=== PATIENT | male | born 1950 | race Caucasian/White ===

== ENCOUNTER 2016-11-18 05:37 | Day surgery (SDC) | payer MEDICARE, OTHER ==
[~2016-11-18] VITALS: Ht 185.4 cm; Wt 56.2 kg
[~2016-11-18 05:37] MED LIST: ACETAMINOPHEN-1 EAC1 PO; AMLODIPINE BESYL5 MG PO; ASPIR-LOW81 MG PO; CIPROFLOXACIN500 MG PO; ESSENTIAL DAIL1 EACH PO; FLOMAX0.4 MG PO; LISINOPRIL-HCT1 EACH PO; METOPROLOL TART25 MG PO; METRONIDAZOLE250 MG PO; NAPROXEN375 MG PO; NASAL DECONGEST30 M2 PO; PLAQUENIL200 MG PO; PREDNISONE5 MG PO; PRILOSEC20 MG PO; TAMSULOSIN HCL0.4 MG PO; TUMS DUAL ACTI1 EACH PO; TYLENOL WITH C1 EACH PO
--- NOTE | 2016-11-18 07:32 | NUR ---
11/18/16 0732 Teena Luna 0797-PATIENT ARRIVED TO PACU ON 10L MASK O2 SAT 100% PATIENT NONAROUSABLE ORAL AIRWAY IN PLACE. RN HOLDING TO MAINTAIN OPEN AIRWAY. BANDAID TO LEFT HIP CDI.
--- NOTE | 2016-11-18 09:26 | NUR ---
PT UP TO BR W/RN STANDBY. PT AMBULATES AT BASELINE AND REPORTS SUCCESSFUL VOID. PT BACK IN BED W/CALL LIGHT W/IN REACH. MORE COFFEE GIVEN.
--- NOTE | 2016-11-19 12:53 | OR ---
[facility] [address] [facility] [place], [place] [address] Signed DATE OF PROCEDURE: 11/18/16 PREOPERATIVE DIAGNOSIS: Inflammatory arthritis, left hip. POSTOPERATIVE DIAGNOSIS: Inflammatory arthritis, left hip. PROCEDURE: Injection, left hip under fluoroscopy. SURGEON: Humberto Mclean M.D. ANESTHESIA: General inhalation. There were no specimens or complications. Tourniquet was not used. There was no blood loss. PROCEDURE DETAIL The patient was taken to the operating room. After the patient was sedated and the airway supported, the left groin area was prepped and draped in a routine sterile fashion. Under fluoroscopic control, an 18-gauge spinal needle was introduced anterolaterally and directed into the hip joint. Once, we pierced the capsule, we placed a syringe with 8 mL of 1% plain Xylocaine and 2 mL of Depo-Medrol on the end of the needle. We then injected the hip and there was essentially no resistance to injection. After injection, the needle was withdrawn and a sterile dressing applied. He was then awakened in the recovery room where he arrived in stable condition. Counts were correct and antibiotic protocols were followed. MD ROXANNA Garcia/Modl /[id number] cc: Anmol Neely MD Electronically Signed By: HUMBERTO MCLEAN MD 11/19/16 1253 PATIENT NAME: MARCOS DAVIS OPERATIVE REPORT DATE OF : 54 PHYSICIAN: HUMBERTO MCLEAN MD REPORT #: [id number] REPORT IS CONFIDENTIAL AND NOT TO BE RELEASED WITHOUT AUTHORIZATION
== END 2016-11-18 09:40 | disposition home or self-care (01) ==
LOC: DS 05:37
PROVIDERS: Orthopaedic Surgery
PROC: 3E0U3GC Introduction of Other Therapeutic Substance into Joints, Percutaneous Approach (ICD-10-PCS; principal; 2016-11-18 06:45)
DX: M06.852 Other specified rheumatoid arthritis, left hip (principal); Z88.0 Allergy status to penicillin; Z88.8 Allergy status to other drugs, medicaments and biological substances; Z79.899 Other long term (current) drug therapy
CPT/HCPCS: 73501; 99156; 99157; J1100; J1885; J2250; J2405; J2704; J2765; J3010; J3301; J7120

== ENCOUNTER 2017-03-09 12:56 | Day surgery (SDC) | payer MEDICARE, OTHER ==
[~2017-03-09] VITALS: Ht 185.4 cm; Wt 57.1 kg
[~2017-03-09 12:56] MED LIST changes: +OMEPRAZOLE40 MG PO; -PRILOSEC20 MG PO
--- NOTE | 2017-03-09 14:54 | NUR ---
03/09/17 1454 Edith Bishop 1445 - PT ARRIVED TO PACU. MAINTAINING OWN AIRWAY. RESPONDING TO STIMULI
--- NOTE | 2017-03-11 10:03 | OR ---
[facility] [address] [place], [place] [address] Signed DATE OF OPERATION: 03/09/2017 SURGEON: Sherrie Colunga MD PREOPERATIVE DIAGNOSES: 1. History of perforated duodenal ulcer, status post laparoscopic Kosta patch repair. 2. Chronic immunosuppression and steroid use for rheumatoid arthritis. POSTOPERATIVE DIAGNOSES: 1. No evidence of ongoing ulcer of duodenum or elsewhere. 2. Mild antral gastritis. PROCEDURE: Esophagogastroduodenoscopy with biopsy. SURGEON: Sherrie Colunga MD. ANESTHESIA: Intravenous sedation, fentanyl 100 mcg, Versed 5 mg. INDICATION: This 66-year-old thin white man is a patient of Dr. Neely, has been long afflicted by rheumatoid disease for which he has taken steroids as well as other immunosuppressants. He has undergone laparoscopic Kosta patch repair of a perforated duodenal ulcer by me over a year ago and remains on PPI medication at this time. He has no particular symptoms of ulceration now, although he does have vague abdominal pain from [id number]. He was admitted to undergo upper endoscopy to affirm that there has been complete healing of the duodenal ulcer, but there were no other ulcerations. He understands the risks of bleeding, infection, and perforation related upper endoscopy and wished to proceed. FINDINGS: Esophagus and stomach and duodenum were essentially normal. There was a silk suture as a remnant in the area of the duodenal ulcer perforation, but no sign of ulceration at all. CLOtest was negative 20 minutes postprocedure. His flap valve was normal as was the esophagus. There was mild antral gastritis, but of little consequence in almost certainly related to his ongoing medication use. PROCEDURE: Electronically Signed By: SHERRIE COLUNGA MD 03/11/17 1003 PATIENT NAME: MARCOS DAVIS OPERATIVE REPORT DATE OF : 54 PHYSICIAN: SHERRIE COLUNGA MD REPORT #: [id number] REPORT IS CONFIDENTIAL AND NOT TO BE RELEASED WITHOUT AUTHORIZATION [facility] [address] [place], [place] [address] Signed The patient was brought to the endoscopy suite given topical Hurricaine spray hypopharyngeal anesthesia and placed in lateral decubitus position. He was given intravenous sedation to the point of slurred speech and nystagmus. A bite block was placed. An Olympus video upper endoscope was passed in the hypopharynx. The vocal cords appeared normal. Scope was advanced to the esophagus. Throughout its length, it was normal as was the stomach. Retroflexed view confirmed a normal flap valve. The pylorus was normal. Scope was passed through into the duodenum. Immediately noted was a remnant of a silk suture that had been used for a Kosta patch repair of the duodenal perforation. Photographs were taken. Biopsies were taken of the duodenum were downstream to assess for celiac disease. The scope was withdrawn to evaluate the stomach more fully. There was mild antral gastritis, but not much and certainly no ulceration. Biopsies were obtained for both LEA and pathologic testing. Retroflexed view again affirmed a normal flap valve. The scope was withdrawn to the distal esophagus, which was normal. The remaining esophagus was normal. The patient was taken to the recovery room in good condition. CONCLUDING DIAGNOSIS: No sign of ulcer, healed duodenal ulcer perforation. PLAN: He needs to remain on PPI medication long-term due to his ulcer risk given his ongoing medication use. He will return to the ongoing care of Dr. Neely. I am happy to see him again as needed, but there will be no scheduled followup otherwise. He acknowledges that there are risks to PPI use long-term. Other alternatives that would be a consideration, but given his significant ongoing steroid use and other features of his underlying rheumatic disease, I would except the risk of osteoporosis and other problems in lieu of a duodenal ulcer or gastric ulcer. He will consider this further. MD ZHANG Douglas/MODL /[id number] Electronically Signed By: SHERRIE COLUNGA MD 03/11/17 1003 PATIENT NAME: MARCOS DAVIS OPERATIVE REPORT DATE OF : 54 PHYSICIAN: SHERRIE COLUNGA MD REPORT #: [id number] REPORT IS CONFIDENTIAL AND NOT TO BE RELEASED WITHOUT AUTHORIZATION [facility] [address] [place], [place] [address] Signed cc: Anmol Neely MD Electronically Signed By: SHERRIE COLUNGA MD 03/11/17 1003 PATIENT NAME: SUSANMARCOS GOMEZ OPERATIVE REPORT DATE OF : 54 PHYSICIAN: SHERRIE COLUNGA MD REPORT #: [id number] REPORT IS CONFIDENTIAL AND NOT TO BE RELEASED WITHOUT AUTHORIZATION
== END 2017-03-09 15:45 | disposition home or self-care (01) ==
LOC: OPS 12:56 → DS 12:56 → OPS 14:00 → DS 14:00 → OPS 15:45
PROVIDERS: Surgery
PROC: 0DB68ZX Excision of Stomach, Via Natural or Artificial Opening Endoscopic, Diagnostic (ICD-10-PCS; 2017-03-09)
PROC: 0DB98ZX Excision of Duodenum, Via Natural or Artificial Opening Endoscopic, Diagnostic (ICD-10-PCS; principal; 2017-03-09 14:00)
DX: K31.9 Disease of stomach and duodenum, unspecified (principal); M06.9 Rheumatoid arthritis, unspecified; Z79.899 Other long term (current) drug therapy
CPT/HCPCS: 88305; 99153; G0500; J0690; J1720; J2250; J3010; J7120

== ENCOUNTER 2017-05-28 11:18 | Inpatient (IN) | payer MEDICARE, OTHER ==
[~2017-05-28] VITALS: Ht 185.4 cm; Wt 57.1 kg
[2017-06-02] MEDS ORDERED: NORCO 5-325 TA1 EACH PO (09:54)
--- NOTE | 2017-06-02 10:05 | NUR ---
PATIENT HERE TODAY FOR PREADMISSION APPOINTMENT. HE IS SCHEDULED FOR A LEFT TOTAL HIP REPLACMENT ON 06/09/17. HE HAS AN APPOINTMENT SET UP FOR PHYISCAL THERAPY AT THE [facility] FOR LATER THIS WEEK. HE HAS HAS A RIGHT TOTAL HIP REPLACMENT IN THE PAST AND STILL HAS THE WALKER AND EQUIPMENT FROM IT. HE HAS TWO STEPS INTO HIS HOME WITH NO STEPS INSIDE THE HOME. HIS VIKTORIA AND DAUGHTER WHO IS ALSO A NURSE WILL BE HERE WITH HIM AND TRANSPORT HIM HOME AND TO APPOINTMENTS. THIS INFORMATION WILL BE SENT TO DR SLATER AND MICHAEL PLANNING FOR FURTHER FOLLOW UP.
--- NOTE | 2017-06-09 09:28 | NUR ---
06/09/17 0928 Teena Luna 0918-PATIENT ARRIVED TO PACU ON 6L MASK O2 SAT 100% PATIENT NONAROUSABLE. DRESSING TO LEFT HIP CDI. SR. ICE APPLIED TO LEFT HIP.
--- NOTE | 2017-06-09 10:31 | NUR ---
TO ROOM 109 VIA BED WITH MAINTENANCE SHOP TECHNICIAN. REPORT RECIEVED FROM [employer] ASSISTANT NURSE. PATIENT ALERT AND ORIENTED, INTERACTIVE. ABLE TO FEEL COOLNESS AND PAIN ALL THE WAY DOWN TO FEET, DIFFICULTY MOVING TOES CURRENTLY. CIRCULATION INTACT IN FEET.
--- NOTE | 2017-06-09 11:08 | NUR ---
PATIENT SITTING UP IN BED. PATIENTS FAMILY IN ROOM. CALL LIGHT WITHIN REACH. NO OTHER NEEDS AT THIS TIME.
--- NOTE | 2017-06-09 11:23 | NUR ---
CONTINUES TO REST IN BED, NO COMPLAINTS, TALKING WITH FAMILY. NO PAIN OR NAUSEA.
--- NOTE | 2017-06-09 12:17 | NUR ---
RESTING IN BED, SLEEPING ON AND OFF. SPO2 MONITOR SHOWS LOW 80% WHEN ASLEEP. CONNECTED NC OXYGEN AT 2L.
--- NOTE | 2017-06-09 13:40 | NUR ---
PATIENT SITTING UP IN BED VISITING WITH FAMILY IN ROOM. FRESH ICE WATER. CALL LIGHT WITHIN REACH. RN IN ROOM. NO OTHER NEEDS AT THIS TIME.
--- NOTE | 2017-06-09 15:07 | NUR ---
HELPED PATIENT UP TO SIDE OF BED, STANDING AND WALKED WITH WALKER TO WINDOW AND BACK. STANDING BESIDE BED TRYING TO USE URINAL. NO URINE OUTPUT. BLADDER SCAN 562ML. WILL TRY TO USE URINAL AGAIN WITHIN 1 HOUR.
[2017-06-09] MEDS ORDERED: ICY HOT1 EAC1 TOP (15:49)
--- NOTE | 2017-06-09 15:49 | NUR ---
MED REC COMPLETE WITH [facility] REFILL HISTORY AND PATIENT INTERVIEW. PATIENT TAKES HYDROXYCHLOROQUINE 1 TABLET TWICE DAILY ON M,,,THU AND ONCE DAILY ,,AND THU.
--- NOTE | 2017-06-09 16:02 | NUR ---
up from bed to try and use urinal again. no sucess. walked to window and back. passing some gas, so walked into bathroom to sit down and try to have a BM.
--- NOTE | 2017-06-09 16:55 | NUR ---
DR SLATER NOTIFIED THAT PATIENT HAS NOT BEEN ABLE TO URINATE DESPITE BEING UP 2 TIMES AND RECEIVEING IV FLUIDS AND PO FLUIDS. BLADDER SCAN SHOWS 562 IN BLADDER. NEW ORDERS RECEIVED TO PLACE TORO CATHETER AND DC IT IN THE AM 06-10-17
--- NOTE | 2017-06-09 17:35 | NUR ---
HAS BEEN UP WITH PHYSICAL THERAPY, MINIMAL PAIN. DESATS WHEN ASLEEP. ON ROOM AIR WHILE AWAKE. SCD'S, IV FLUIDS, DUE TO VOID, MAY PLACE OTRO IF NO VOID, DC TORO IN AM. CAN ADVANCE DIET TOLERATED. NO NAUSEA WITH LIQUID DIET.
--- NOTE | 2017-06-09 17:55 | NUR ---
PATIENT SITTING UP IN BED. PATIENT STATES PAIN LEVEL IS A 2.5 OUT OF 10. PATIENT STATES THAT HE HAS NOT VOIDED SINCE ARRIVING TO MED/SURG. RN NOTIFIED. RN IN ROOM. CALL LIGHT WITHIN REACH. NO OTHER NEEDS AT THIS TIME.
--- NOTE | 2017-06-09 18:17 | NUR ---
DR ASCENCIO HERE TO TALK WITH PATIENT.
--- NOTE | 2017-06-09 20:00 | NUR ---
RECEIVED REPORT FROM DAY SHIFT RN. PATIENT IS RESTING IN BED WATCHING TV. PATIENT DENIES ANY NEEDS AT THIS TIME. CALL LIGHT IN REACH.
--- NOTE | 2017-06-09 20:20 | NUR ---
PATIENT ASSESSMENT COMPLETED. PATIENT MEDICATION GIVEN PER ORDER. PATIENT GIVEN PRN PAIN MEDICATIONS PER ORDER FOR 3/[address] IN [address] HIP. DRESSING IN PLACE ON LEFT HIP, MEPILEX AND OPSITE IN PLACE, DRESSING C/D/I. PATIENT RESTING IN BED WATCHING TV. WEDGE, SCDS, AND HEEL PROTECTORS IN PLACE. PATIENT GIVEN ICE WATER REFILL. TORO INPLACE AND DRAINING CLEAR YELLOW URINE. NO FURTHER NEEDS NOTED. CALL LIGHT IN REACH.
--- NOTE | 2017-06-09 21:25 | NUR ---
PATIENT SCHEDULED MEDICATIONS GIVEN PER ORDER. PATIENT DENIES PAIN AT THIS TIME. NO FURTHER NEEDS AT THIS TIME. CALL LIGHT WITHIN REACH. ICE PACK PLACED ON PATIENTS LEFT HIP.
--- NOTE | 2017-06-09 23:04 | NUR ---
PATIENT GIVEN PRN PAIN MEDICATION PER ORDER. PATIENT RATES PAIN AT A 4/10 IN HIS LEFT. HIP. WARM BLANKET PROVIDED. NO FURTHER NEEDS. CALL LIGHT IN REACH.
--- NOTE | 2017-06-10 01:21 | NUR ---
PATIENT IS RESTING IN BED. PULSE OX READINGS ARE WNL. CALL LIGHT IN REACH.
--- NOTE | 2017-06-10 02:40 | NUR ---
PATIENTS VITALS TAKEN AND RECORDED. PATIENTS 0200 MEDICATIONS GIVEN PER ORDER. PATIENT DENIES THE NEED FOR PAIN MEDICATION AT THIS TIME. CALL LIGHT IN REACH.
--- NOTE | 2017-06-10 04:10 | NUR ---
PATIENT IS RESTING IN BED WITH EYES CLOSED. PULSE OX READINGS ARE WNL. CALL LIGHT IN REACH.
--- NOTE | 2017-06-10 04:45 | NUR ---
PATIENT RESTED WELL THROUGHOUT THE SHIFT. PATIENT RECEIVED PRN PAIN MEDICATION X2. JONAH IS ON A REG DIET AND TOLERATING WELL, NO COMPLAINTS OF NAUSEA. PATIENT IS ON RA. PATIENT HAS HEEL PROTECTORS, AND SCDS IN PLACE. [facility] HAS ICE PACK TO LEFT HIP PRN. PATIENT HAS WEDGE IN PLACE WHILE IN BED. PATIENT HAS NOT BEEN UP TO AMBULATE DURING THIS SHIFT, HOWEVER WAS A 1PA W/FWW YESTERDAY. PATIENT IS AAOX3 AND [facility] PATIENT HAS MEPILEX AND OPSITE TO LEFT HIPT, AND IS C/D/I.
--- NOTE | 2017-06-10 06:20 | NUR ---
PATIENTS TORO DC'D, W/NO ISSUSE. PATIENT GIVEN MORNING MEDICATIONS PER ORDER. PATIENT GIVEN PRN PAIN MEDICATION PER ORDER. PATIENT RATES PAIN AT A 3/10 IN HIS LEFT HIP. PATIENTS PULSE OX DC'D. PATIENT ASSISTED TO THE RECLINER. PATIENT TOLERATED ACTIVITY WELL. PATIENT IS A SBA W/FWW. PATIENT DENIES ANY FURTHER NEEDS. PATIENT IS COMPLETING IS AT THIS TIME. CALL LIGHT IN REACH.
--- NOTE | 2017-06-10 07:28 | NUR ---
RECEIVED REPORT FROM MEAGHAN WAGGONER. PT IS AWAKE AND UP IN CHAIR. ICE PACK IN PLACE. PT DENIES PAIN AND OTHER NEEDS AT THIS TIME.
--- NOTE | 2017-06-10 08:32 | NUR ---
PT SITTING UP IN CHAIR EATING BREAKFAST. STATES PAIN 3/10 TOLERABLE. HAS VOIDED X2 SINCE TORO REMOVAL. USED URINAL. URINE IS PALE YELLOW. FAMILY IN ROOM WITH PT. DENIES OTHER NEEDS AT THIS TIME.
--- NOTE | 2017-06-10 09:51 | NUR ---
PT SITTING UP IN CHAIR. IN ROOM WITH PT. STATES PAIN IS 2/10 AND IS TOLERABLE. DENIES OTHER NEEDS AT THIS TIME.
--- NOTE | 2017-06-10 10:20 | NUR ---
PT STATES PAIN 2.5/10. GIVEN 1 TAB OF OXY PRIOR TO PHYSICAL THERAPY. PT HAS NUMEROUS FAMILY MEMBERS IN ROOM. PT IS ALERT AND VERY PLEASANT. DENIES OTHER NEEDS AT THIS TIME.
--- NOTE | 2017-06-10 11:07 | NUR ---
DEMARCO VALERO ASSISTED PT BACK TO CHAIR FROM BATHROOM. PT WALKS WELL WITH FWW. RATED PAIN 2/10 WHILE WALKING. REPLACED ICE PACK. REFILLED WATER AND COFFEE. PT DENIES OTHER NEEDS AT THIS TIME. FAMILY IN ROOM VISITING WITH PT.
--- NOTE | 2017-06-10 11:08 | NUR ---
THIS LABORER PLUMBING ASSISTED PATIENT TO THE RESTROOM. 1 PERSON SBA WITH FWW. FRESH GOWN ON PATIENT. PATIENT IS NOW SITTING UP IN CHAIR. FRESH ICE WATER. NEW ICE PACK. THIS LABORER PLUMBING ANSWERED CALL LIGHT FROM BATHROOM. WHEN THIS LABORER PLUMBING WALKED INTO THE ROOM AND THE PATIENT WAS ALREADY OUT OF THE BATHROOM AND HEADING TO HIS CHAIR. THIS LABORER PLUMBING REMINDED PATIENT TO CALL BEFORE STANDING. RN NOTIFIED. CALL LIGHT WITHIN REACH. NO OTHER NEEDS AT THIS TIME.
--- NOTE | 2017-06-10 11:32 | NUR ---
PT WALKED WITH PHYS. THER. ERICA STATES HE DID WELL AND IS CLEARED BY HER TO GO HOME IF DR SLATER WISHES. PT TOLERATED ACTIVITY WELL.
--- NOTE | 2017-06-10 13:54 | NUR ---
PT SITTING UP IN CHAIR. GIVEN 2 TABS OXY FOR PAIN 06/09. PT HAS DC ORDERS. WAITING FOR TO RETURN. WILL WORK WITH ERICA ONE MORE TIME BEFORE GOING HOME.
--- NOTE | 2017-06-10 14:23 | NUR ---
DC TEACHING PROVIDED ON WOUND CARE, S/S OF INFECTION, AND FOLLOW-UP PT VERBALIZED UNDERSTANDING. ALL QUESTIONS ANSWERED. IV REMOVED WNEvelyn. ERICA IN ROOM TO DISCUSS PHYSCIAL THERAPY PLAN. WALKING WITH PT.
[2017-06-10] MEDS ORDERED: XARELTO10 MG PO (14:43)
[2017-06-10] MEDS ORDERED: OXYCODONE HCL10 MG PO (14:43)
--- NOTE | 2017-06-10 15:30 | NUR ---
PT DC'D TO HOME WITH . EDUCATION PROVIDED. ONEIL IN TO SEE PT. VERBALIZED UNDERSTANDING. OUT IN WHEELCHAIR WITH DEMARCO VALERO.
--- NOTE | 2017-06-11 07:14 | OR ---
[facility] [address] [place], [place] [address] Signed DATE OF OPERATION: 06/09/2017 SURGEON: Jn Slater MD PREOPERATIVE DIAGNOSIS: End-stage rheumatoid arthritis, left hip. POSTOPERATIVE DIAGNOSIS: End-stage rheumatoid arthritis, left hip. PROCEDURE: Left total hip arthroplasty. IMPLANTS: Size 56 mm Sector Hollis cup with a neutral 36 liner. On the femoral side, we used a size 7 Gage stem. With a +1.5 36 head, the stem with standard offset. ANESTHESIA: Spinal with sedation. SPECIMENS AND COMPLICATIONS: There were no specimens or complications. BLOOD LOSS: About 100 mL. WHAT WAS DONE: The patient was taken to the operating room. After anesthesia was induced and the patient sedated, he was placed in the right lateral decubitus position and prepped and draped in a routine sterile fashion. A slightly curvilinear incision was made centered over the apex of the greater trochanter. Skin was divided sharply. Hemostasis was achieved with electrocautery. The deep fascia was incised in line with the skin incision and a self-retaining retractor was placed. The anterior one-third of the gluteus was then elevated off the anterior aspect of the greater trochanter and reflected medially. An anterior and superior capsulectomy was then performed. We then able to dislocate the femoral head, which measured 54 mm and resected the femoral neck using the Gage resection guide. The head and neck fragment were removed. A self-retaining retractor was placed and the acetabulum was exposed circumferentially. We then removed the contents of the pulvinar and got hemostasis again with electrocautery. We then used a series of hemispherical reamers and had a good fit with Electronically Signed By: JN SLATER MD 06/11/17 0714 PATIENT NAME: MARCOS DAVIS OPERATIVE REPORT DATE OF : 54 REPORT #: [id number] PHYSICIAN: JN SLATER MD PCP: MARKUS RANKIN MD REPORT IS CONFIDENTIAL AND NOT TO BE RELEASED WITHOUT AUTHORIZATION [facility] [address] [place], [place] [address] Signed the 55 mm reamer. We put a 55 mm trial shell and were happy with fit fill alignment and position. We therefore impacted a 56 mm cup and augmented the fixation with two 20 mm screws. A neutral 36 cup was then placed. The femur was then rotated up into the incision and using standard reamers and broaches, it was broached up to a size 6. We then reduced the hip with a -2 mm 36 mm ball. There was just a little bit of play in the hip at this point. An AP x-ray was taken, which actually showed the size 6 was in slight varus. We therefore removed the size 6, reamed up to a size 7 and placed the size 7 standard offset femoral stem, and on it put the +1.5 36 head. We then reduced the hip again and took another x-ray and we were happy with the alignment, position, and stability. The wound was copiously irrigated and then closed in a standard fashion. Sterile dressings were applied. He was placed in a hip abduction brace, awakened, taken to the recovery room where he arrived in stable condition. Counts were correct and antibiotic protocols were followed. Jn Slater MD WFB/MODL /[id number] Copies: ~ Electronically Signed By: JN SLATER MD 06/11/17 0714 PATIENT NAME: MARCOS DAVIS OPERATIVE REPORT DATE OF : 54 REPORT #: [id number] PHYSICIAN: JN SLATER MD PCP: MARKUS RANKIN MD REPORT IS CONFIDENTIAL AND NOT TO BE RELEASED WITHOUT AUTHORIZATION
--- NOTE | 2017-06-11 12:55 | NUR ---
WAS ASKED BY THE CHW WHO HAD DONE A FOLLOW UP CALL ON THE PT AND SHE ASKED ME TO CALL PT. HE WAS HAVING MORE PAIN THAN HE HAD YESTERDAY AND WAS CONCERNED SOMETHING WAS WRONG AND HE CALLED DR SLATER OFFICE AND THEY WERE CLOSED TODAY. I TALKED WITH PT ABOUT HIS PAIN MEDS, AND ABOUT ICING THE WOUND AND ABOUT BEING SURE TO EXERCISE THEY WAY THAT PHYSICAL THERAPY SHOWED HIM. HE SAID HE WOULD DO THAT. ALSO STATED HIS TEMP WAS UP TO 100.2, TOLD HIM TO BE SURE AND COUGH AND DEEP BREATH ALSO ABOUT EVERY COUPLE OF HOURS. DENIED FURTHER QUESTIONS AT THIS TIME. TOLD HE COULD CALL ANYTIME.
--- NOTE | 2017-06-11 13:06 | NUR ---
FAXED CHART NOTES TO [facility] OP PT AFTER SPEAKING TO FAUSTO THERE AND SHE TOLD ME THEY ALREADY HAVE AN ORDER FROM DR SLATER, BUT TO PLEASE SEND THE CHART NOTES TO THEM. FAXED FACESHEET, H AND P, PROG NOTES, OP NOTE, PT EVAL AND NOTES. RECIEVED A FAX CONFIRMATION ALSO.
== END 2017-06-10 15:25 | disposition home or self-care (01) | DRG 470 ==
LOC: DSVR 06-09 05:30 → MS 06-09 05:30
PROVIDERS: ADMIT Orthopaedic Surgery
PROC: 0SRB0JA Replacement of Left Hip Joint with Synthetic Substitute, Uncemented, Open Approach (ICD-10-PCS; principal; 2017-06-09 08:00)
DX: M06.852 Other specified rheumatoid arthritis, left hip (principal); I10 Essential (primary) hypertension; Z88.0 Allergy status to penicillin
CPT/HCPCS: 01214; 36415; 72170; 73501; 80048; 85025; 94762; 97110; 97116; 97161; C1776; G8978; G8979; J0690; J2250; J2274; J2704; J3010; J7120; J7512

== ENCOUNTER 2018-02-26 16:05 | Emergency (ER) | payer MEDICARE, OTHER ==
[~2018-02-26] VITALS: Ht 185.4 cm; Wt 61.2 kg
[~2018-02-26 16:05] MED LIST changes: +ICY HOT1 EAC1 TOP; +NORCO 10-325 T1 EACH PO; +NORCO 5-325 TA1 EACH PO; +OXYCODONE HCL10 MG PO; +SERTRALINE HCL25 MG PO; +XARELTO10 MG PO
== END 2018-02-26 20:22 | disposition home or self-care (01) ==
LOC: ED 16:05
DX: M96.89 Other intraoperative and postprocedural complications and disorders of the musculoskeletal system (principal); I10 Essential (primary) hypertension; M06.9 Rheumatoid arthritis, unspecified; M32.9 Systemic lupus erythematosus, unspecified; Z96.612 Presence of left artificial shoulder joint; Z88.0 Allergy status to penicillin; Z88.8 Allergy status to other drugs, medicaments and biological substances; Z96.641 Presence of right artificial hip joint; Z79.899 Other long term (current) drug therapy; Z79.52 Long term (current) use of systemic steroids
CPT/HCPCS: 36415; 73030; 76882; 80048; 85025; 85651; 99284-25

== ENCOUNTER 2020-11-02 07:45 | Day surgery (SDC) | payer MEDICARE, OTHER ==
[~2020-11-02] VITALS: Ht 182.9 cm; Wt 58.0 kg
--- NOTE | 2020-11-02 11:14 | NUR ---
11/02/20 1114 Sheets,Kia 1106 PT ARRIVED TO PACU ON 4L VIA NC, PT NONAROUSABLE TO TACTILE STIMULI AND RESP EVEN AND UNLABORED. VSS.
--- NOTE | 2020-11-03 07:16 | OR ---
[facility] [address], [place] [address] Signed DATE OF OPERATION: 11/02/2020 SURGEON: Donny Mosley MD PROCEDURE: Upper and lower endoscopy. PREOPERATIVE DIAGNOSES: 1. Repair of perforated duodenal [place] [address] Garcia. 2. Epigastric abdominal pain. 3. Unremarkable colonoscopy [place] [address] Mosley. 4. Screening. POSTOPERATIVE DIAGNOSES: 1. Mild diffuse gastritis. 2. No visible ulcer or stricture. 3. Minimal disruption to his Z-line. 4. Moderate internal hemorrhoids. 5. 5 mm polyp mid right colon. 6. 3 mm polyp at 10 cm (rectum). PROCEDURES: 1. EGD with CLOtest and biopsies of the antrum. 2. Colonoscopy with hot biopsy. ESTIMATED BLOOD LOSS: None. INDICATIONS: Marcos is a 69-year-old gentleman, asked to see me for upper and lower endoscopy. He presents as above. He said he was having epigastric abdominal pain. He said it is reminiscent of his perforated ulcer. In addition, he is in need of a followup screening colonoscopy. He has no family history of colon cancer or polyps. He has no lower GI complaints. In the office, I gave him a pamphlet on both upper and lower endoscopy. He understands to do test quite well. There is risk including, but not limited to gas bloating, crampy abdominal pain, bleeding, perforation requiring surgery, and missed diagnosis. He also understands the need for IV conscious sedation. Given his daily need for narcotics as well as his very frail nature associated with his advanced rheumatoid arthritis, we did ask an anesthesia provider to help us with increased monitoring and sedation with propofol. He had expressed understanding and wished to Electronically Signed By: DONNY MOSLEY MD 11/03/20 0716 PATIENT NAME: MARCOS DAVIS OPERATIVE REPORT DATE OF : 54 REPORT #: [id number] PHYSICIAN: DONNY MOSLEY MD PCP: MARKUS NEELY MD REPORT IS CONFIDENTIAL AND NOT TO BE RELEASED WITHOUT AUTHORIZATION [facility] [address], [place] [address] Signed proceed. PROCEDURE NOTE: Marcos was taken into our endoscopy suite and placed in the supine semi-recumbent position. He was given IV propofol per our nurse drier belt conveyor. A bite block was utilized for the case. The adult gastroscope was introduced and advanced under direct visualization of the camera out into the third portion of the duodenum without difficulty. The duodenum and pyloric channel were unremarkable. We examined the pyloric channel very carefully and there was no evidence of any retained suture, ulcer, or stricture. It looked quite healthy to us. The stomach showed very minimal erythematous changes. We went ahead and took a biopsy out of the antrum for CLOtest as well as pathologic review. Upon retroflexion of the scope, we really cannot appreciate an obvious hiatal hernia. The scope was then withdrawn up through the area of the GE junction, which was compliant without stricture. He does have just mild disruption to his Z-line. There was no Vernon's mucosa. No distal esophagitis. The middle and upper esophagus were unremarkable. After this, the gas was suctioned out. Gastroscope removed. Marcos tolerated the procedure quite well. Marcos was then rotated into the left lateral decubitus position. A digital rectal exam was performed and this was unremarkable. He was maintained on IV propofol per the nurse drier belt conveyor. He has mild induration and swelling to the prostate gland. The adult colonoscope was then introduced and advanced all around into the cecum under direct visualization of the camera. It took just a little abdominal compression to advance the scope. His prep was quite good. We could easily see his appendiceal orifice and the ileocecal valve. The scope was slowly withdrawn. The two polyps were removed easily with hot biopsy forceps. We did not see diverticulosis. Upon retroflexion of the scope, he does have moderate internal hemorrhoid columns. After this, the gas was suctioned out and colonoscope removed. Marcos tolerated the procedure quite well. RECOMMENDATIONS: I will see Marcos back in my office in 7 to 14 days to review his results. Donny Mosley MD [facility]/MODL /[id number] Electronically Signed By: DONNY MOSLEY MD 11/03/20 0716 PATIENT NAME: MARCOS DAVIS OPERATIVE REPORT DATE OF : 54 REPORT #: [id number] PHYSICIAN: DONNY MOSLEY MD PCP: MARKUS NEELY MD REPORT IS CONFIDENTIAL AND NOT TO BE RELEASED WITHOUT AUTHORIZATION [address] [address] Signed cc: Markus Neely MD Chart Filed Incomplete Donny Mosley MD Copies: MARKUS NEELY MD CHART FILED INCOMPLETE DONNY MOSLEY MD ~ Electronically Signed By: DONNY MOSLEY MD 11/03/20 0716 PATIENT NAME: MARCOS DAVIS OPERATIVE REPORT DATE OF : 54 REPORT #: [id number] PHYSICIAN: DONNY MOSLEY MD PCP: MARKUS NEELY MD REPORT IS CONFIDENTIAL AND NOT TO BE RELEASED WITHOUT AUTHORIZATION
--- NOTE | 2020-11-06 15:39 | PATH ---
[facility] [address], [place] [address] Signed SPECIMEN(S): A ANTRUM SPECIMEN(S): B MID ASCENDING/RIGHT COLON POLYP SPECIMEN(S): C COLON POLYP AT 10 CM SPECIMEN SOURCE: A. ANTRUM B. MID ASCENDING/RIGHT COLON POLYP C. COLON POLYP AT 10 CM CLINICAL HISTORY: EGD and colonoscopy. Preop: Epigastric pain, screening colonoscopy. Postop: Mild gastritis, colorectal polyps, hemorrhoids. MICROSCOPIC DESCRIPTION: Histologic sections of all submitted blocks are examined by light microscopy. These findings, together with the gross examination, support the pathologic diagnosis. FINAL PATHOLOGIC DIAGNOSIS: A. Stomach, antrum, biopsy: - No significant histopathologic alterations. B. Colon, mid ascending/right, polypectomy: - Tubular adenoma. - There is no evidence of high-grade dysplasia or malignancy. C. Colon, 10 cm, polypectomy: - Hyperplastic polyp. - There is no evidence of dysplasia or malignancy. COMMENT: Regarding specimen A, the sections through the gastric biopsies show fragments of histologically unremarkable antral mucosa. There is no evidence of acute or chronic inflammation. There is no evidence of H. pylori, intestinal metaplasia, abnormal infiltrates or neoplasia. K:[id number]:[id number] GROSS DESCRIPTION: Three specimens are received in three containers, labeled "RS." A. The specimen, labeled "RS, 1," and designated on the requisition "antrum," is received in formalin and consists of one pedersen soft tissue fragment that measures 0.3 cm in greatest dimension. The specimen is entirely submitted in cassette (A1). PATIENT NAME: MARCOS DAVIS PATHOLOGY DATE OF : 54 REPORT #: [id number] PHYSICIAN: CAMILO HYATT PCP: MARKUS RANKIN MD REPORT IS CONFIDENTIAL AND NOT TO BE RELEASED WITHOUT AUTHORIZATION [facility] [address] [place], [place] [address] Signed B. The specimen, labeled "RS, 2," and designated on the requisition "mid ascending colon polyp," is received in formalin and consists of one pedersen soft tissue fragment that measures 0.3 cm in greatest dimension. The specimen is entirely submitted in cassette (B1). C. The specimen, labeled "RS, 3," and designated on the requisition "colon polyp at 10 cm," is received in formalin and consists of one pedersen soft tissue fragment that measures 0.3 cm in greatest dimension. The specimen is entirely submitted in cassette (C1). AT (under the direct supervision of a pathologist) The Gross Description was prepared using a voice recognition system. The report was reviewed for accuracy; however, sound-alike word errors, addition and/or deletions may occur. If there is any question about this report, please contact Client Services. PERFORMING LABORATORY: The technical component was performed by [employer], [address] [place] [id number] (Artificial Teeth Inspector: Mirela Diggs MD; CLIA# [id number]). [facility], [address] [place] [address]. Diagnostician: Jerad Noonan MD Pathologist Electronically Signed 11/06/2020 Copies: ~ PATIENT NAME: MARCOS DAVIS PATHOLOGY DATE OF : 54 REPORT #: [id number] PHYSICIAN: CAMILO PATHOLOGY PCP: MARKUS RANKIN MD REPORT IS CONFIDENTIAL AND NOT TO BE RELEASED WITHOUT AUTHORIZATION
== END 2020-11-02 14:20 | disposition home or self-care (01) ==
LOC: OPS 07:45 → DS 07:45 → OPS 08:30 → DS 11-30 06:45
PROVIDERS: ATTEND Colon & Rectal Surgery
PROC: 0DB68ZZ Excision of Stomach, Via Natural or Artificial Opening Endoscopic (ICD-10-PCS; principal; 2020-11-02 10:30)
PROC: 0DBE8ZZ Excision of Large Intestine, Via Natural or Artificial Opening Endoscopic (ICD-10-PCS; 2020-11-02 10:30)
DX: Z12.11 Encounter for screening for malignant neoplasm of colon (principal); K29.70 Gastritis, unspecified, without bleeding; K64.8 Other hemorrhoids; D12.2 Benign neoplasm of ascending colon; K63.5 Polyp of colon; K22.8 Other specified diseases of esophagus; M06.9 Rheumatoid arthritis, unspecified; I10 Essential (primary) hypertension; I27.20 Pulmonary hypertension, unspecified; K21.9 Gastro-esophageal reflux disease without esophagitis; N40.1 Benign prostatic hyperplasia with lower urinary tract symptoms; R35.0 Frequency of micturition; M32.9 Systemic lupus erythematosus, unspecified; Z87.11 Personal history of peptic ulcer disease; Z96.643 Presence of artificial hip joint, bilateral; Z96.612 Presence of left artificial shoulder joint; Z88.8 Allergy status to other drugs, medicaments and biological substances; Z88.0 Allergy status to penicillin
CPT/HCPCS: 88305; J0690; J2001; J2704; J7121